=== PATIENT | male | born 1990 | race Caucasian/White ===

== ENCOUNTER 2024-12-26 10:34 | Emergency (ER) | payer OTHER ==
[~2024-12-26] VITALS: Ht 172.7 cm; Wt 111.6 kg
[2024-12-26 11:05] VITALS: TEMP 98.1
[2024-12-26 11:44] LABS: PLATELET COUNT (AUTO) 278 K/uL (150-450); RED BLOOD CELL COUNT(AUTO) 5.15 MIL/uL (4.5-6.0); RED CELL DISTRIBUTION WIDTH 11.9 % (11.5-15.0); WHITE BLOOD COUNT (AUTO) 6.9 K/uL (4.3-11.0)
[2024-12-26 11:53] LABS: CALCIUM, SERUM 9.1 mg/dL (8.5-10.1); CREATININE 0.8 mg/dL (0.6-1.3); SODIUM SERUM 143 mmol/L (136-145); UREA NITROGEN, BLOOD 15 mg/dL (7-18)
[2024-12-26 11:57] LABS: ASPARTATE AMINOTRANSFERASE 12 U/L (15-37); TOTAL PROTEIN, SERUM 7.5 g/dL (6.4-8.2)
[2024-12-26] MEDS ORDERED: KETOROLAC TROMETHAMINE INJ 30 MG/ML VIAL ONE (14:02)
[2024-12-26] MEDS ORDERED: ACETAMINOPHEN 325 MG TABLET ONE (14:03)
[2024-12-26] MEDS: KETOROLAC TROMETHAMINE INJ 30 MG/ML VIAL IM ONE (14:09)
[2024-12-26] MEDS: ACETAMINOPHEN 325 MG TABLET PO ONE (14:09)
[2024-12-26 14:53] VITALS: BP 123/68; O2SAT 96
== END 2024-12-26 14:53 | disposition home or self-care (01) ==
LOC: ER 10:34
DX: R07.9 Chest pain, unspecified (principal); M54.2 Cervicalgia; V49.29XA Unspecified car occupant injured in collision with other motor vehicles in nontraffic accident, initial encounter; Y93.89 Activity, other specified; Y92.410 Unspecified street and highway as the place of occurrence of the external cause; Y99.8 Other external cause status
CPT/HCPCS: 99285; 71250; 71045; 96372; 93005; 85025; 80048; 80076; 36415; 84484; J1885